=== PATIENT | female | born 1945 | race African-American/Black ===

== ENCOUNTER 2024-05-01 18:19 | Inpatient (IN) | payer MEDICARE, OTHER ==
[~2024-05-01] VITALS: Ht 172.7 cm; Wt 104.3 kg
[2024-05-01] MEDS ORDERED: HYDR200T81 PO (19:11)
[2024-05-01] MEDS ORDERED: METF-440 PO (19:11)
[2024-05-01] MEDS ORDERED: SERT-440 PO (19:11)
[2024-05-01] MEDS ORDERED: ASPI81TA31 PO (19:11)
[2024-05-01] MEDS ORDERED: CARB25TA PO (19:11)
[2024-05-01] MEDS ORDERED: HALO10TA13 PO (19:11)
[2024-05-01] MEDS ORDERED: MELO-105 PO (19:11)
[2024-05-01] MEDS ORDERED: CARI6CAP PO (19:11)
[2024-05-01] MEDS ORDERED: ATOR10TA PO (19:11)
[2024-05-01] MEDS ORDERED: MEMA10TA PO (19:11)
[2024-05-01] MEDS ORDERED: DONE10TA44 PO (19:11)
[2024-05-01] MEDS ORDERED: ALBUTEROL SULFATE 2.5 MG/3 ML NEBU ONE (19:13)
[2024-05-01] MEDS ORDERED: IPRATROPIUM BROMIDE 0.5 MG/2.5 ML NEBU ONE (19:13)
[2024-05-01 19:15] VITALS: O2SAT 97
[2024-05-01] MEDS: ALBUTEROL SULFATE 2.5 MG/3 ML NEBU NEB ONE (19:15)
[2024-05-01] MEDS: IPRATROPIUM BROMIDE 0.5 MG/2.5 ML NEBU NEB ONE (19:15)
[2024-05-01 19:26] LABS: BASOPHILS # (AUTO) 0.1 K/UL (0.0-0.2); BASOPHILS % (AUTO) 1.3 % (0.0-2.0); EOSINOPHILS % (AUTO) 0.1 % (0.0-7.0); HEMOGLOBIN 13.5 g/dL (10.9-14.3); LYMPHOCYTES # (AUTO) 1.4 K/uL (0.8-4.8); LYMPHOCYTES % (AUTO) 14.4 % (20.5-51.5); MEAN CORPUSCULAR HEMOGLOBIN 29.5 uug (24.7-32.8); MEAN CORPUSCULAR HGB CONC 33 g/dL (32.3-35.6); MEAN CORPUSCULAR VOLUME 89.7 fL (75.5-95.3); MONOCYTES # (AUTO) 1.4 K/uL (0.1-1.30); MONOCYTES % (AUTO) 14.5 % (0.0-11.0); NEUTROPHILS # (AUTO) 6.9 K/uL (1.8-8.9); NEUTROPHILS % (AUTO) 69.7 % (38.5-71.5); PLATELET COUNT (AUTO) 181 K/uL (179-408); RED BLOOD CELL COUNT(AUTO) 4.58 MIL/uL (3.63-4.92); RED CELL DISTRIBUTION WIDTH 14.3 % (12.3-17.7); WHITE BLOOD COUNT (AUTO) 9.9 K/uL (3.8-11.8)
[2024-05-01 19:30] VITALS: O2SAT 98
[2024-05-01 19:32] LABS: DIFFERENTIAL COMMENT 1
[2024-05-01 19:36] LABS: CALCIUM 9.1 mg/dL (8.5-10.1); CARBON DIOXIDE 27 mmol/L (21-32); CHLORIDE 104 mmol/L (98-107); CREATININE 0.9 mg/dL (0.6-1.3); GLUCOSE 234 mg/dL (74-106); SODIUM SERUM 142 mmol/L (136-145); UREA NITROGEN, BLOOD 14 mg/dL (7-18)
[2024-05-01 19:48] LABS: ALANINE AMINOTRANSFERASE 10 U/L (14-59); ALBUMIN 2.7 g/dL (3.4-5.0); ALKALINE PHOSPHATASE 115 U/L (50-136); ASPARTATE AMINOTRANSFERASE 25 U/L (15-37); BILIRUBIN,DIRECT 0.6 mg/dL (0.0-0.2); BILIRUBIN,TOTAL 1.3 mg/dL (0.2-1.0); NT-PRO BNP 49 pg/mL (0-125); TOTAL PROTEIN, SERUM 7.7 g/dL (6.4-8.2)
[2024-05-01] MEDS: levoFLOXacin 750MG/D5W 150 ML IV ONE (20:00)
[2024-05-01] MEDS ORDERED: levoFLOXacin 750MG/D5W 150 ML IV ONE (20:06)
[2024-05-01] MEDS ORDERED: SWABABLE VALVE TRANSFER SET EA MC ONE (21:20)
[2024-05-01] MEDS ORDERED: IOHEXOL 350 100 ML INFUS..BTL ONE (21:20)
[2024-05-01] MEDS ORDERED: IV NORMAL SALINE 250 ML IV ONE (21:20)
[2024-05-01 22:34] LABS: *BLOOD, URINE NEGATIVE (NEGATIVE); *CLARITY,URINE CLEAR (CLEAR); *COLOR,URINE YELLOW (YELLOW); *KETONES,URINE NEGATIVE (NEGATIVE); *PROTEIN,URINE 1+ (NEGATIVE); LEUKOCYTE ESTERASE ,URINE NEGATIVE (NEGATIVE); NITRITE, URINE NEGATIVE (NEGATIVE); UGLUCOSE NEGATIVE (NEGATIVE)
[2024-05-01 22:37] LABS: *BILIRUBIN,URIN 1+ (NEGATIVE)
[2024-05-01] MEDS ORDERED: ONDANSETRON 4 MG/2 ML VIAL IV PRN (23:00)
[2024-05-01] MEDS ORDERED: DEXTROSE 50% 50 ML DISP.SYRIN IV PRN (23:00)
[2024-05-01] MEDS ORDERED: REMEDY ESSENTIAL ZINC PASTE 113 GM TP PRN (23:00)
[2024-05-01 23:37] LABS: BACTERIA,URINE FEW /HPF (NONE SEEN); RBC,URINE 0-3 /HPF (0-3); WBC,URINE NONE SEEN /HPF (0-3)
[2024-05-01 23:38] LABS: MUCUS,URINE FEW /LPF (0-FEW); SQUAMOUS EPITHELIAL CELL,UR MODERATE /HPF (NONE SEEN)
[2024-05-01] MEDS: IV NS 1000 ML 1,000 ML IV PRN (23:51)
[2024-05-01] MEDS: BLOOD SUGAR DIAGNOSTIC 1 EACH STRIP VI SCH (23:52)
[2024-05-01] MEDS: ENOXAPARIN SODIUM 40 MG/0.4 ML DISP.SYRIN SQ SCH (23:58)
[2024-05-02] VITALS (17 sets, daily range): BP systolic 109–163; BP diastolic 55–95; TEMP 97.4–99.2; O2SAT 94–100
[2024-05-02] MEDS: INSULIN REGULAR, HUMAN 1000 UNIT/10 ML VIAL SQ PRN
[2024-05-02 06:56] LABS: BASOPHILS % (AUTO) 0.4 % (0.0-2.0); EOSINOPHILS % (AUTO) 0.2 % (0.0-7.0); HEMATOCRIT 37.8 % (31.2-41.9); HEMOGLOBIN 12.5 g/dL (10.9-14.3); LYMPHOCYTES # (AUTO) 1.9 K/uL (0.8-4.8); LYMPHOCYTES % (AUTO) 18.1 % (20.5-51.5); MEAN CORPUSCULAR HEMOGLOBIN 29.8 uug (24.7-32.8); MEAN CORPUSCULAR HGB CONC 33 g/dL (32.3-35.6); MEAN CORPUSCULAR VOLUME 90.2 fL (75.5-95.3); MONOCYTES # (AUTO) 1.9 K/uL (0.1-1.30); MONOCYTES % (AUTO) 18.1 % (0.0-11.0); NEUTROPHILS # (AUTO) 6.6 K/uL (1.8-8.9); NEUTROPHILS % (AUTO) 63.2 % (38.5-71.5); PLATELET COUNT (AUTO) 193 K/uL (179-408); RED BLOOD CELL COUNT(AUTO) 4.19 MIL/uL (3.63-4.92); WHITE BLOOD COUNT (AUTO) 10.5 K/uL (3.8-11.8)
[2024-05-02 06:58] LABS: DIFFERENTIAL COMMENT 1
[2024-05-02 07:11] LABS: CALCIUM 9.1 mg/dL (8.5-10.1); CARBON DIOXIDE 29 mmol/L (21-32); CHLORIDE 106 mmol/L (98-107); CREATININE 0.7 mg/dL (0.6-1.3); GLUCOSE 182 mg/dL (74-106); MAGNESIUM 1.8 mg/dL (1.8-2.4); PHOSPHOROUS 3.7 mg/dL (2.5-4.9); POTASSIUM 3.8 mmol/L (3.5-5.1); SODIUM SERUM 142 mmol/L (136-145); UREA NITROGEN, BLOOD 14 mg/dL (7-18)
[2024-05-02] MEDS: ACETAMINOPHEN 325 MG TABLET PO PRN (08:13)
[2024-05-02 10:00] LABS: BAND % (MANUAL) 14 % (0-10); LYMPHOCYTES % (MANUAL) 16 % (20-40); MONOCYTES % (MANUAL) 18 % (2-10); NEUTROPHILS % (MANUAL) 52 % (42-75); PLATELET ESTIMATE ADEQUATE
[2024-05-02] MEDS ORDERED: CARIPRAZINE HYDROCHLORIDE 6 MG PO SCH (10:15)
[2024-05-02] MEDS ORDERED: ASPIRIN 81 MG TAB.CHEW PO SCH (10:15)
[2024-05-02] MEDS ORDERED: CARBIDOPA 50 MG PO SCH (10:15)
[2024-05-02] MEDS: IPRATROPIUM BROMIDE 0.5 MG/2.5 ML NEBU NEB SCH (11:38)
[2024-05-02] MEDS: ALBUTEROL SULFATE 1.25 MG/3 ML NEBU NEB SCH (11:38)
[2024-05-02] MEDS ORDERED: ASPI-1101 PO (11:47)
[2024-05-02] MEDS: TOBRAMYCIN 0.3% OPHT DROP 5 ML BOTTLE LEFTEYE SCH (11:51)
[2024-05-02] MEDS: MELOXICAM 7.5 MG TABLET PO SCH (12:36)
[2024-05-02] MEDS: DONEPEZIL 10 MG TABLET PO SCH (12:36)
[2024-05-02] MEDS: MEMANTINE HCL 10 MG TABLET PO SCH (12:38)
[2024-05-02] MEDS: HALOPERIDOL 5 MG TABLET PO SCH (12:38)
[2024-05-02] MEDS: CEFTRIAXONE 1 G in IV DEXTROSE 5% 50 ML IV SCH (13:17)
[2024-05-02] MEDS: AZITHROMYCIN IV 500 MG in IV DEXTROSE 5% 250 ML IV SCH (13:18)
[2024-05-02] MEDS: HYDROXYCHLOROQUINE SULFATE 200 MG TABLET PO SCH (16:42)
[2024-05-02] MEDS: CARIPRAZINE HYDROCHLORIDE 6 MG PO ONE (16:42)
[2024-05-02] MEDS: CARBIDOPA 25 MG PO SCH (16:43)
[2024-05-02] MEDS ORDERED: levoFLOXacin 500 MG/D5W 500 MG in PREMIXED 1 EACH IV SCH (20:00)
[2024-05-02] MEDS: SERTRALINE HCL 100 MG TABLET PO SCH (21:01)
[2024-05-02] MEDS: ATORVASTATIN 10 MG TABLET PO SCH (21:01)
[2024-05-03] VITALS (13 sets, daily range): BP systolic 128–149; BP diastolic 53–73; TEMP 98.1–99.3; O2SAT 80–99
[2024-05-03 06:26] LABS: BASOPHILS % (AUTO) 0.5 % (0.0-2.0); EOSINOPHILS # (AUTO) 0.1 K/uL (0.0-0.7); EOSINOPHILS % (AUTO) 0.6 % (0.0-7.0); HEMATOCRIT 36.6 % (31.2-41.9); HEMOGLOBIN 11.9 g/dL (10.9-14.3); LYMPHOCYTES % (AUTO) 22.4 % (20.5-51.5); MEAN CORPUSCULAR HEMOGLOBIN 29.4 uug (24.7-32.8); MEAN CORPUSCULAR HGB CONC 32 g/dL (32.3-35.6); MEAN CORPUSCULAR VOLUME 90.7 fL (75.5-95.3); MONOCYTES # (AUTO) 1.4 K/uL (0.1-1.30); MONOCYTES % (AUTO) 15.2 % (0.0-11.0); NEUTROPHILS # (AUTO) 5.5 K/uL (1.8-8.9); NEUTROPHILS % (AUTO) 61.3 % (38.5-71.5); PLATELET COUNT (AUTO) 181 K/uL (179-408); RED BLOOD CELL COUNT(AUTO) 4.04 MIL/uL (3.63-4.92); RED CELL DISTRIBUTION WIDTH 14.3 % (12.3-17.7)
[2024-05-03 06:37] LABS: DIFFERENTIAL COMMENT 1
[2024-05-03 06:58] LABS: CALCIUM 9.1 mg/dL (8.5-10.1); CARBON DIOXIDE 30 mmol/L (21-32); CHLORIDE 106 mmol/L (98-107); CREATININE 0.8 mg/dL (0.6-1.3); GLUCOSE 193 mg/dL (74-106); MAGNESIUM 1.9 mg/dL (1.8-2.4); PHOSPHOROUS 3.9 mg/dL (2.5-4.9); SODIUM SERUM 141 mmol/L (136-145); UREA NITROGEN, BLOOD 11 mg/dL (7-18)
[2024-05-03 07:06] LABS: EOSINOPHILS % (MANUAL) 2 % (0-8); LYMPHOCYTES % (MANUAL) 39 % (20-40); MONOCYTES % (MANUAL) 5 % (2-10); NEUTROPHILS % (MANUAL) 54 % (42-75)
[2024-05-03] MEDS: ASPIRIN EC 81 MG TABLET.DR PO SCH (09:06)
[2024-05-03] MEDS ORDERED: AMOX1TAB16 PO (10:47)
[2024-05-03] MEDS ORDERED: TOBR5DRO7 LEFTEYE (10:47)
[2024-05-03] MEDS: CARBIDOPA 25 MG PO SCH (18:03)
[2024-05-03] MEDS: CARIPRAZINE HYDROCHLORIDE 6 MG PO ONE (18:03)
[2024-05-04] VITALS (15 sets, daily range): BP systolic 109–140; BP diastolic 51–62; TEMP 98.4–98.8; O2SAT 95–99
[2024-05-04 06:44] LABS: CALCIUM 9.3 mg/dL (8.5-10.1); CARBON DIOXIDE 30 mmol/L (21-32); CHLORIDE 105 mmol/L (98-107); CREATININE 0.7 mg/dL (0.6-1.3); GLUCOSE 184 mg/dL (74-106); MAGNESIUM 1.8 mg/dL (1.8-2.4); PHOSPHOROUS 4.3 mg/dL (2.5-4.9); POTASSIUM 4.1 mmol/L (3.5-5.1); SODIUM SERUM 143 mmol/L (136-145); UREA NITROGEN, BLOOD 11 mg/dL (7-18)
[2024-05-04 07:23] LABS: BASOPHILS # (AUTO) 0.2 K/UL (0.0-0.2); BASOPHILS % (AUTO) 2.4 % (0.0-2.0); EOSINOPHILS # (AUTO) 0.1 K/uL (0.0-0.7); EOSINOPHILS % (AUTO) 0.8 % (0.0-7.0); HEMOGLOBIN 11.8 g/dL (10.9-14.3); LYMPHOCYTES # (AUTO) 1.6 K/uL (0.8-4.8); LYMPHOCYTES % (AUTO) 16.6 % (20.5-51.5); MEAN CORPUSCULAR HEMOGLOBIN 29.4 uug (24.7-32.8); MEAN CORPUSCULAR HGB CONC 33 g/dL (32.3-35.6); MEAN CORPUSCULAR VOLUME 89.6 fL (75.5-95.3); MONOCYTES % (AUTO) 10.2 % (0.0-11.0); NEUTROPHILS # (AUTO) 6.5 K/uL (1.8-8.9); PLATELET COUNT (AUTO) 196 K/uL (179-408); RED BLOOD CELL COUNT(AUTO) 4.01 MIL/uL (3.63-4.92); WHITE BLOOD COUNT (AUTO) 9.4 K/uL (3.8-11.8)
== END 2024-05-04 18:20 | disposition home or self-care (01) | DRG 177 ==
LOC: ER 18:21 → TELE3 23:02 → MEDSURG3 05-04 16:28
PROVIDERS: ADMIT Nurse Practitioner Acute Care; ATTEND Nurse Practitioner Acute Care
PROC: 05HC33Z Insertion of Infusion Device into Left Basilic Vein, Percutaneous Approach (ICD-10-PCS; principal; 2024-05-02)
DX: J69.0 Pneumonitis due to inhalation of food and vomit (principal); J96.01 Acute respiratory failure with hypoxia; E44.0 Moderate protein-calorie malnutrition; R47.01 Aphasia; H44.002 Unspecified purulent endophthalmitis, left eye; E88.09 Other disorders of plasma-protein metabolism, not elsewhere classified; E11.65 Type 2 diabetes mellitus with hyperglycemia; R79.1 Abnormal coagulation profile; F20.9 Schizophrenia, unspecified; G20.A1 Parkinson's disease without dyskinesia, without mention of fluctuations; F02.80 Dementia in other diseases classified elsewhere, unspecified severity, without behavioral disturbance, psychotic disturbance, mood disturbance, and anxiety; E66.9 Obesity, unspecified; Z79.84 Long term (current) use of oral hypoglycemic drugs; Z87.891 Personal history of nicotine dependence; Z79.82 Long term (current) use of aspirin; Z68.35 Body mass index [BMI] 35.0-35.9, adult; I10 Essential (primary) hypertension; J40 Bronchitis, not specified as acute or chronic; Z99.81 Dependence on supplemental oxygen
CPT/HCPCS: 36415; 70030-TC; 71045; 71275; 83735; 84100; 84484; 85025; 87040; 94640; 94664; A4606; A4663; G0378; J0456; J0696; J1650; J1815; J1956; J3590; J7040; J7050; Q9967